=== PATIENT | female | born 1945 | race Caucasian/White ===

== ENCOUNTER → 2017-02-11 | Outpatient (CLI) | payer OTHER ==
[2017-02-11] VITALS (8 sets, daily range): BP systolic 132–193; BP diastolic 52–83
[~2017-02-11] MED LIST: ALEVE220 MG PO; AMITIZA 24 MCG24 MC1 PO; AMOXICILLIN875 MG PO; ASPIR 8181 MG PO; B12INJ IM; BENADRYL25 MG PO; CALCIUM +D & M1 EACH PO; CALCIUM 500 WI1 EAC3 PO; CARDIZEM CD240 MG PO; CEPHALEXIN 500500 M3 PO; CLONAZEPAM 0.50.5 M1 PO; DEPO-ESTRAD5 MG/1 ML INJECTION; DULCOLAX5 MG; DULCOLAX5 MG PO; ESTROGEN; FLEXERIL PO; HYDROCODON-ACE1 EAC5; HYDROCODONE-AP1 EAC2 PO; HYDROCODONE-AP1 EAC6 PO; IBUPROFEN 800800 M1 PO; IRON325 PO; KEFLEX500 M1 PO; KEFLEX500 MG; KEFLEX500 MG PO; KLOR-CON 10 ER10 MEQ PO; KLOR-CON 1010 MEQ; KLOR-CON 1010 MEQ PO; LASIX 20 MG TAB20 MG PO; LEVOTHYROXIN0.075 MG PO; LIMBITROL DS T1 EACH PO; LOPRESSOR50 PO; MACROBID 100 M100 M1 PO; MEDROLDOSEPACK PO; MIRALAX17 GM PO; MOBIC15 MG; MOBIC15 MG PO; NAPROSYN375 MG PO; NEXIUM40 MG PO; NIFEDICAL XL60 MG; NORCO 10-325 T1 EACH PO; NORCO 5-325 TA1 EACH PO; OMEPRAZOLE 20 M20 M1 PO; PEPCID20 MG PO; PREDNISONE 10 M10 MG PO; PRILOSEC 20 MG20 MG PO; PRILOSEC20 MG PO; PROTONIX40 M1 PO; ROBAXIN 750 MG750 M1 PO; SINGULAIR 10 MG10 M1 PO; SYNTHROID75 MCG PO; TOPROL XL100 MG; TOPROL XL50 MG PO; TRICOR145 MG PO; VITAMIN B-12500 MCG PO; ZANAFLEX4 M1; ZANAFLEX4 M1 PO; ZOFRAN ODT4 MG PO; estrogen
--- NOTE | 2017-03-06 09:11 | CARD ---
[address] [address] CARDIAC CATH REPORT Name: HELGATAMIE L Room: [facility]#: [id number] Admission: 02/11/17 Attend Phys: Sai Velazquez MD Discharge: Date of : 49 Report #: [id number] THIS REPORT FOR: //name// CC: Julian Velazquez DATE OF SERVICE: 02/11/2017 PROCEDURE: Implantable loop recorder replacement. INDICATION: Recurrent syncope. DESCRIPTION OF PROCEDURE: After informed consent was obtained, the patient was brought to the cardiac holding area. The area of the chest and parasternal area was prepped and draped in sterile fashion. Local anesthesia was achieved with 1% lidocaine. A focal area left of the sternum and the 4th intercostal space was anesthetized. An initial incision was made of approximately 1 cm in length. Using dilating tool, a path was made for the implantable loop recorder. A Biotronik BioMonitor loop recorder was placed percutaneously without difficulty. The skin incision was then closed using Steri-Strips after preparing the skin with Mastisol. The patient tolerated the procedure well without complication. Post-procedure interrogation of the device showed adequate sensing. IMPRESSION: 1. Recurrent syncope. 2. Placement of an implantable loop recorder without complication. <ELECTRONICALLY SIGNED> By: Sai Velazquez MD, [facility] 03/06/17 0911 1826 [id number] Hospitaldebra Velazquez MD, HEBERT /nt
== END | disposition home or self-care (01) ==
LOC: M.CL 08:29
DX: R55 Syncope and collapse (principal)

== ENCOUNTER 2017-04-20 02:35 | Emergency (ER) | payer OTHER ==
[~2017-04-20] VITALS: Ht 162.6 cm; Wt 87.5 kg
[~2017-04-20 02:35] MED LIST changes: -DULCOLAX5 MG; -KEFLEX500 M1 PO; -MOBIC15 MG; -TOPROL XL100 MG
[2017-04-20] MEDS ORDERED: TOPROL XL100 MG (02:50)
[2017-04-20] MEDS ORDERED: MOBIC15 MG (02:53)
[2017-04-20 04:05] VITALS: BP 141/64
[2017-04-20] MEDS ORDERED: KEFLEX500 M1 PO (14:22)
[2017-04-29] MEDS ORDERED: DULCOLAX5 MG (15:03)
== END 2017-04-20 04:05 | disposition home or self-care (01) ==
LOC: M.ERS 02:35
DX: R25.2 Cramp and spasm (principal); I10 Essential (primary) hypertension; K21.9 Gastro-esophageal reflux disease without esophagitis; Z90.710 Acquired absence of both cervix and uterus; E03.9 Hypothyroidism, unspecified; Z90.49 Acquired absence of other specified parts of digestive tract; Z88.1 Allergy status to other antibiotic agents; Z88.5 Allergy status to narcotic agent; Z88.2 Allergy status to sulfonamides; Z88.7 Allergy status to serum and vaccine; Z88.8 Allergy status to other drugs, medicaments and biological substances

== ENCOUNTER 2017-04-20 11:48 | Emergency (ER) | payer OTHER ==
[~2017-04-20] VITALS: Ht 162.6 cm; Wt 87.5 kg
[~2017-04-20 11:48] MED LIST changes: +MOBIC15 MG; +TOPROL XL100 MG
[2017-04-20 12:10] LABS: HEMATOCRIT 36.1 % (37.0-47.0); HEMOGLOBIN 11.7 gm/dL (12.0-15.0); MCHC 32.4 g/dL (28.0-37.0); MCV 83.3 fL (80.0-100.0); MPV 7.6 fl. (7.2-11.1); RBC 4.33 mil/uL (4.20-5.00); WBC 12.3 thou/uL (4.0-11.0)
[2017-04-20 12:13] LABS: POC CA IONIZED 4.7 mg/dL (4.5-5.3); POC CREATININE 1.5 mg/dL (0.6-1.3); POC HEMOGLOBIN 11.9 g/dL (12.0-17.0); POC POTASSIUM 4.1 mmol/L (3.5-4.9)
[2017-04-20 12:18] LABS: CALCIUM 9.2 mg/dL (8.5-10.1); CREATININE 1.6 mg/dL (0.6-1.3); POTASSIUM 4.1 mmol/L (3.5-5.1)
[2017-04-20 12:20] LABS: APTT 28.2 Seconds (25.0-31.3); INR 1.1; PROTIME 10.7 Seconds (9.20-11.50)
[2017-04-20 12:23] LABS: TOTAL BILIRUBIN 0.4 mg/dL (<0.1-1.0); TOTAL PROTEIN 7.3 g/dL (6.4-8.2)
[2017-04-20 12:32] LABS: URINE BILIRUBIN NEGATIVE (Negative); URINE BLOOD NEGATIVE (Negative); URINE CLARITY CLEAR; URINE COLOR YELLOW; URINE GLUCOSE-RANDOM NEGATIVE (Negative); URINE KETONES NEGATIVE (Negative); URINE LEUKOCYTES 1+ (Negative); URINE NITRITE NEGATIVE (Negative); URINE PROTEIN TRACE (Negative); URINE UROBILINOGEN 0.2 E.U./dl (0.2-1.0)
[2017-04-20 12:43] LABS: SQUAMOUS >10 Many /LPF (0-3); URINE WBC >25 Many /HPF (0-5)
[2017-04-20 12:45] LABS: BACTERIA None Seen /HPF (None Seen); CASTS None Seen /LPF (None Seen); CRYSTALS None Seen /LPF (None Seen); HYALINE CASTS >10 Many /LPF (None Seen); MUCUS >6 Heavy strn/LPF (None Seen); URINE RBC None Seen /HPF (0-2)
[2017-04-20] MEDS ORDERED: KEFLEX500 M1 PO (14:22)
[2017-04-20 14:24] VITALS: BP 141/46
--- NOTE | 2017-04-20 16:38 | EKG ---
[place] [address] ELECTROCARDIOGRAM REPORT Name: TAMIE PARTIDA Room: [facility]#: [id number] Admission: 04/20/17 Attend Phys: Discharge: 04/20/17 Date of : 49 Report #: [id number] THIS REPORT FOR: //name// [facility] ED Test Date: 2017-04-20 Test Time: 13:44:39 Pat Name: TAMIE PARTIDA Department: Room: Gender: F Career Placement Specialist: STUDENT : 1945 Requested By: Kareem Greenfield Order Number: [id number] MD: Sai Velazquez Measurements Intervals [place] Rate: 74 P: 40 NH: 144 QRS: 15 QRSD: 97 T: 229 QT: 355 QTc: 394 Interpretive Statements Sinus rhythm Probable left atrial enlargement Abnormal R-wave progression, early transition Left ventricular hypertrophy Nonspecific T abnormalities, diffuse leads Compared to ECG 12/09/2016 14:30:08 T-wave abnormality now present Electronically Signed On 04-20-2017 16:38:13 CEMENT FINISHER by Sai Velazquez [email or web address] <ELECTRONICALLY SIGNED> By: Sai Velazquez MD, [facility] 04/20/17 1638 1344 1344 Sai Velazquez MD, [facility] /EPI
[2017-04-29] MEDS ORDERED: DULCOLAX5 MG (15:03)
== END 2017-04-20 14:45 | disposition home or self-care (01) ==
LOC: M.ERS 11:48
PROVIDERS: Emergency Medicine
DX: N39.0 Urinary tract infection, site not specified (principal); R53.1 Weakness; I10 Essential (primary) hypertension; K21.9 Gastro-esophageal reflux disease without esophagitis; E03.9 Hypothyroidism, unspecified; Z90.710 Acquired absence of both cervix and uterus; Z90.49 Acquired absence of other specified parts of digestive tract; Z86.73 Personal history of transient ischemic attack (TIA), and cerebral infarction without residual deficits; Z88.1 Allergy status to other antibiotic agents; Z88.5 Allergy status to narcotic agent; Z88.2 Allergy status to sulfonamides; Z88.7 Allergy status to serum and vaccine

== ENCOUNTER → 2017-04-30 | Outpatient (CLI) | payer OTHER ==
[2017-04-30] VITALS (22 sets, daily range): BP systolic 91–141; BP diastolic 20–87
[~2017-04-30] MED LIST changes: +DULCOLAX5 MG; +KEFLEX500 M1 PO
--- NOTE | 2017-05-10 09:04 | CARD ---
[address] [address] CARDIAC CATH REPORT Name: HELGATAMIE L Room: [facility]#: [id number] Admission: 04/30/17 Attend Phys: Sai Velazquez MD Discharge: Date of : 49 Report #: [id number] THIS REPORT FOR: //name// CC: Sai Ha INDICATION: Syncope. PROCEDURE: Tilt table test. DESCRIPTION OF PROCEDURE: After informed consent was obtained, the patient was brought to the cardiac holding area. The patient was placed on the tilt table. Baseline blood pressure, heart rate and oxygen saturations were checked. The patient was then tilted to the 70-degree head upright position. Blood pressure, heart rate and O2 saturations were measured every 2 hours for 20 minutes. At the end of 20 minutes, the patient was given 0.4 mg of sublingual nitroglycerin. Vital signs continued to be monitored every 2 minutes, including blood pressure, heart rate and O2 saturations. The patient had no significant fluctuations in vital signs during either phase of the tilt table test. At the end of 40 minutes, the tilt table was returned to the supine position. The patient recovered in usual fashion and was discharged in stable condition. FINDINGS: Baseline blood pressure was 132/60 with a resting pulse rate of 67 beats per minute. At completion of the initial phase of the tilt table, the patient's blood pressure was 132/44 mmHg with a pulse rate of 75 beats per minute. At this point in time, the patient was given 0.4 mg of sublingual nitroglycerin. The patient's blood pressure had a fatmata of 91/20 mmHg with a pulse rate of 94 beats per minute. The patient remained symptomatic. The patient's blood pressure gradually improved back to normal levels. There were no significant fluctuations in heart rate. At the completion of the test, the patient's blood pressure was 106/57 mmHg with a pulse rate of 80 beats per minute. IMPRESSION: 1. Syncope. 2. Negative tilt table test with no indication to suggest neurocardiogenic syncope. <ELECTRONICALLY SIGNED> By: Sai Velazquez MD, FACC 05/10/17 0904 1800 0017Micdeni Velazquez MD, FACC /nt
== END | disposition home or self-care (01) ==
LOC: M.CL 08:33
DX: R55 Syncope and collapse (principal); F41.8 Other specified anxiety disorders; Z88.2 Allergy status to sulfonamides; Z88.8 Allergy status to other drugs, medicaments and biological substances; Z79.899 Other long term (current) drug therapy; Z79.891 Long term (current) use of opiate analgesic; Z87.440 Personal history of urinary (tract) infections

== ENCOUNTER → 2017-05-28 | Outpatient (CLI) | payer OTHER | LOC: M.MRI 13:05 | DX: G31.9 Degenerative disease of nervous system, unspecified (principal); I10 Essential (primary) hypertension; E11.9 Type 2 diabetes mellitus without complications; E78.5 Hyperlipidemia, unspecified; E03.9 Hypothyroidism, unspecified; Z79.4 Long term (current) use of insulin ==

== ENCOUNTER → 2017-06-11 | Outpatient (CLI) | payer OTHER | LOC: M.MRI 11:00 | DX: S83.252A Bucket-handle tear of lateral meniscus, current injury, left knee, initial encounter (principal); M17.12 Unilateral primary osteoarthritis, left knee; X58.XXXA Exposure to other specified factors, initial encounter; Y93.89 Activity, other specified; Y92.89 Other specified places as the place of occurrence of the external cause; Y99.8 Other external cause status ==

== ENCOUNTER 2017-07-22 09:20 | Emergency (ER) | payer OTHER ==
[~2017-07-22] VITALS: Ht 162.6 cm; Wt 88.5 kg
[2017-07-22 10:02] LABS: ABSOLUTE BASOPHILS 0.1 thou/uL (0.0-0.2); ABSOLUTE EOSINOPHILS 0.2 thou/uL (0.0-0.7); ABSOLUTE MONOCYTES 0.4 thou/uL (0.0-1.2); ABSOLUTE NEUTROPHILS 7.5 thou/uL (1.6-8.1); BASOPHILS 1.1 %; EOSINOPHILS 1.8 %; HEMATOCRIT 38.5 % (37.0-47.0); HEMOGLOBIN 12.6 gm/dL (12.0-15.0); LYMPHOCYTES 19.6 %; MCH 27.2 pg (26.0-34.0); MCHC 32.7 g/dL (28.0-37.0); MCV 83.2 fL (80.0-100.0); MPV 8.9 fl. (7.2-11.1); NUCLEATED RBCS 0 /100WBC; PLATELET COUNT* 397 thou/uL (150-400); POLYS 73.5 %; RBC 4.63 mil/uL (4.20-5.00); RDW-CV 14.1 % (10.5-14.5); WBC 10.2 thou/uL (4.0-11.0)
[2017-07-22 10:07] LABS: CREATININE 1.2 mg/dL (0.6-1.3)
[2017-07-22 10:11] LABS: ALBUMIN 4.1 g/dL (3.4-5.0); TOTAL BILIRUBIN 0.3 mg/dL (<0.1-1.0); TOTAL PROTEIN 7.6 g/dL (6.4-8.2)
[2017-07-22 11:06] VITALS: BP 131/55
== END 2017-07-22 11:08 | disposition home or self-care (01) ==
LOC: M.ERS 09:20
PROVIDERS: Family Medicine
DX: G44.229 Chronic tension-type headache, not intractable (principal); M79.1 Myalgia; K21.9 Gastro-esophageal reflux disease without esophagitis; E03.9 Hypothyroidism, unspecified; Z88.1 Allergy status to other antibiotic agents; Z88.5 Allergy status to narcotic agent; Z88.8 Allergy status to other drugs, medicaments and biological substances; Z90.49 Acquired absence of other specified parts of digestive tract; Z90.710 Acquired absence of both cervix and uterus

== ENCOUNTER → 2017-09-17 | Outpatient (CLI) | payer OTHER | LOC: M.MRI 09-09 13:43 | DX: I67.82 Cerebral ischemia (principal); E04.9 Nontoxic goiter, unspecified; Z88.8 Allergy status to other drugs, medicaments and biological substances ==

== ENCOUNTER 2018-03-12 17:39 | Inpatient (IN) | payer MEDICARE, OTHER ==
[~2018-03-12] VITALS: Ht 160 cm; Wt 85.3 kg
[~2018-03-12 17:39] MED LIST changes: -DULCOLAX5 MG; +LEVOXYL75 MCG PO; -TOPROL XL100 MG; +TOPROL XL100 MG PO
[2018-03-12 17:46] VITALS: BP 147/65
[2018-03-12] MEDS ORDERED: BENADRYL25 MG PO (18:00)
[2018-03-12] MEDS ORDERED: VITAMIN B-12500 MCG PO (18:00)
[2018-03-12 18:24] LABS: ABSOLUTE EOSINOPHILS 0.1 thou/uL (0.0-0.7); ABSOLUTE MONOCYTES 0.5 thou/uL (0.0-1.2); ABSOLUTE NEUTROPHILS 2.9 thou/uL (1.6-8.1); BASOPHILS 0.8 %; EOSINOPHILS 2.5 %; HEMATOCRIT 37.1 % (37.0-47.0); HEMOGLOBIN 12.2 gm/dL (12.0-15.0); LYMPHOCYTES 35.8 %; MCH 27.6 pg (26.0-34.0); MCHC 32.8 g/dL (28.0-37.0); MCV 84.2 fL (80.0-100.0); MONOCYTES 9.6 %; MPV 8.2 fl. (7.2-11.1); NUCLEATED RBCS 0 /100WBC; PLATELET COUNT* 322 thou/uL (150-400); POLYS 51.3 %; RBC 4.41 mil/uL (4.20-5.00); RDW-CV 13.9 % (10.5-14.5); WBC 5.6 thou/uL (4.0-11.0)
[2018-03-12 18:31] LABS: CALCIUM 9.1 mg/dL (8.5-10.1); CREATININE 1.3 mg/dL (0.6-1.3); POTASSIUM 3.8 mmol/L (3.5-5.1)
[2018-03-12 18:33] LABS: INFLUENZA A ANTIGEN None Detected (None Detect); INFLUENZA B ANTIGEN None Detected (None Detect)
[2018-03-12 18:36] LABS: ALBUMIN 3.8 g/dL (3.4-5.0); TOTAL BILIRUBIN 0.3 mg/dL (<0.1-1.0); TOTAL PROTEIN 7.6 g/dL (6.4-8.2)
[2018-03-12 21:30] VITALS: BP 113/71
[2018-03-12 21:34] VITALS: BP 143/51
[2018-03-13] VITALS: BP 153/54
[2018-03-13 01:55] LABS: ABSOLUTE LYMPHOCYTES 1.1 thou/uL (0.8-5.3); ABSOLUTE MONOCYTES 0.2 thou/uL (0.0-1.2); ABSOLUTE NEUTROPHILS 5.6 thou/uL (1.6-8.1); BASOPHILS 0.3 %; EOSINOPHILS 0.1 %; HEMATOCRIT 33.5 % (37.0-47.0); HEMOGLOBIN 11.2 gm/dL (12.0-15.0); LYMPHOCYTES 15.6 %; MCH 28.2 pg (26.0-34.0); MCHC 33.4 g/dL (28.0-37.0); MCV 84.5 fL (80.0-100.0); MONOCYTES 2.7 %; MPV 8.3 fl. (7.2-11.1); NUCLEATED RBCS 0 /100WBC; PLATELET COUNT* 296 thou/uL (150-400); POLYS 81.3 %; RBC 3.96 mil/uL (4.20-5.00); RDW-CV 13.7 % (10.5-14.5); WBC 6.9 thou/uL (4.0-11.0)
[2018-03-13 01:58] LABS: CALCIUM 8.9 mg/dL (8.5-10.1); CREATININE 1.6 mg/dL (0.6-1.3); MAGNESIUM 1.8 mg/dL (1.8-2.4); POTASSIUM 3.9 mmol/L (3.5-5.1)
[2018-03-13 06:03] LABS: URINE BILIRUBIN NEGATIVE (Negative); URINE BLOOD NEGATIVE (Negative); URINE CLARITY CLEAR; URINE COLOR YELLOW; URINE GLUCOSE-RANDOM 2+ (Negative); URINE KETONES NEGATIVE (Negative); URINE LEUKOCYTES NEGATIVE (Negative); URINE NITRITE POSITIVE (Negative); URINE PROTEIN NEGATIVE (Negative); URINE UROBILINOGEN 0.2 E.U./dl (0.2-1.0)
[2018-03-13 08:00] VITALS: BP 155/50
[2018-03-13 09:16] LABS: SQUAMOUS 0-3 Few /LPF (0-3); URINE WBC 6-15 Few /HPF (0-5)
[2018-03-13 09:17] LABS: MUCUS 4-6 Moderate strn/LPF (None Seen); URINE RBC 0-2 Rare /HPF (0-2)
[2018-03-13 09:18] LABS: CRYSTALS None Seen /LPF (None Seen); HYALINE CASTS 0-3 Few /LPF (None Seen)
[2018-03-13 11:34] VITALS: BP 147/58
--- NOTE | 2018-03-13 12:14 | EKG ---
[place] [address] ELECTROCARDIOGRAM REPORT Name: TAMIE PARTIDA Room: [place] [address] ADM IN [facility].#: [id number] Admission: 03/12/18 Attend Phys: La Nena Arnett MD Discharge: Date of : 49 Report #: [id number] THIS REPORT FOR: //name// [facility] ED Test Date: 2018-03-12 Test Time: 17:51:01 Pat Name: TAMIE PARTIDA Department: Room: [facility] Gender: F Burglar Alarm Operator: KEYONA : 1945 Requested By: Homa Beasley Order Number: [id number] MD: Brandon Verma Measurements Intervals [place] Rate: 71 P: 3 AL: 146 QRS: 20 QRSD: 91 T: 41 QT: 364 QTc: 396 Interpretive Statements Sinus rhythm Left ventricular hypertrophy Compared to ECG 04/20/2017 13:44:39 T-wave abnormality no longer present Electronically Signed On 03-13-2018 12:14:00 BRAND REPRESENTATIVE by Brandon Verma [email or web address] <ELECTRONICALLY SIGNED> By: Brandon Verma MD, [facility] 03/13/18 1214 1751 175 Brandon Verma MD, [facility] /EPI
[2018-03-13 15:50] VITALS: BP 133/50
[2018-03-13 20:00] VITALS: BP 138/67
[2018-03-14] VITALS: BP 139/56
[2018-03-14 04:00] VITALS: BP 136/62
[2018-03-14 05:06] LABS: ABSOLUTE LYMPHOCYTES 1.6 thou/uL (0.8-5.3); ABSOLUTE MONOCYTES 0.2 thou/uL (0.0-1.2); ABSOLUTE NEUTROPHILS 6.9 thou/uL (1.6-8.1); BASOPHILS 0.3 %; HEMATOCRIT 33.7 % (37.0-47.0); HEMOGLOBIN 11.3 gm/dL (12.0-15.0); LYMPHOCYTES 18.2 %; MCHC 33.5 g/dL (28.0-37.0); MCV 83.4 fL (80.0-100.0); MONOCYTES 2.7 %; MPV 8.5 fl. (7.2-11.1); NUCLEATED RBCS 0 /100WBC; PLATELET COUNT* 347 thou/uL (150-400); POLYS 78.8 %; RBC 4.05 mil/uL (4.20-5.00); RDW-CV 13.8 % (10.5-14.5); WBC 8.8 thou/uL (4.0-11.0)
[2018-03-14 05:15] LABS: CALCIUM 9.6 mg/dL (8.5-10.1); CREATININE 1.1 mg/dL (0.6-1.3); MAGNESIUM 2.2 mg/dL (1.8-2.4)
[2018-03-14 08:00] VITALS: BP 135/50
[2018-03-14 12:34] VITALS: BP 143/67
[2018-03-14 20:10] VITALS: BP 140/55
[2018-03-15] VITALS: BP 134/56
[2018-03-15 03:57] VITALS: BP 130/70
[2018-03-15 08:00] VITALS: BP 122/62
[2018-03-15 11:52] VITALS: BP 129/57
[2018-03-15 16:04] VITALS: BP 142/52
[2018-03-15 19:45] VITALS: BP 140/43
[2018-03-16] VITALS: BP 137/56
[2018-03-16 08:00] VITALS: BP 140/62
[2018-03-16 12:00] VITALS: BP 149/63
[2018-03-16 12:59] VITALS: BP 149/63
[2018-03-16] MEDS ORDERED: CEFDINIR300 MG PO (13:10)
[2018-03-16] MEDS ORDERED: TAMIFLU75 MG PO (13:11)
== END 2018-03-16 15:30 | disposition home or self-care (01) | DRG 202 ==
LOC: M.ERS 17:39 → M.2W 19:59 → M.TBA-ER 19:59 → M.2W 20:33
PROVIDERS: Internal Medicine; Nurse Practitioner Family; ADMIT Family Medicine
DX: J20.9 Acute bronchitis, unspecified (principal); J15.6 Pneumonia due to other Gram-negative bacteria; I10 Essential (primary) hypertension; E03.9 Hypothyroidism, unspecified; K21.9 Gastro-esophageal reflux disease without esophagitis; F41.1 Generalized anxiety disorder; F32.9 Major depressive disorder, single episode, unspecified; I73.9 Peripheral vascular disease, unspecified; J84.10 Pulmonary fibrosis, unspecified; Z90.710 Acquired absence of both cervix and uterus; Z98.891 History of uterine scar from previous surgery; Z90.49 Acquired absence of other specified parts of digestive tract; Z79.899 Other long term (current) drug therapy; Z88.2 Allergy status to sulfonamides; Z88.8 Allergy status to other drugs, medicaments and biological substances; Z88.1 Allergy status to other antibiotic agents; Z91.041 Radiographic dye allergy status

== ENCOUNTER 2018-05-11 20:39 | Emergency (ER) | payer MEDICARE, OTHER ==
[~2018-05-11] VITALS: Ht 160 cm; Wt 81.2 kg
[~2018-05-11 20:39] MED LIST changes: +CEFDINIR300 MG PO; +TAMIFLU75 MG PO
[2018-05-11] MEDS ORDERED: NORCO 5-325 TA1 EACH PO (21:33)
[2018-05-11 22:13] VITALS: BP 182/53
== END 2018-05-11 22:14 | disposition home or self-care (01) ==
LOC: M.ERS 20:39
DX: M25.562 Pain in left knee (principal); I10 Essential (primary) hypertension; K21.9 Gastro-esophageal reflux disease without esophagitis; E03.9 Hypothyroidism, unspecified; Z90.49 Acquired absence of other specified parts of digestive tract; Z90.710 Acquired absence of both cervix and uterus; Z88.2 Allergy status to sulfonamides; Z88.6 Allergy status to analgesic agent; Z88.8 Allergy status to other drugs, medicaments and biological substances

== ENCOUNTER → 2019-08-04 | Outpatient (CLI) | payer MEDICARE, OTHER ==
--- NOTE | 2019-08-07 18:06 | CARDNUC ---
[place] [address] CARDIAC NUCLEAR IMAGING REPORT Name: HELGATAMIE L Room: [facility]#: [id number] Admission: 08/04/19 Attend Phys: Sai Velazqeuz, Discharge: Date of : 49 Date of Service: 08/07/19 1805 Report #: [id number] THIS REPORT FOR: cc: POPPY OLIVERA MD, CHADWICK MD Liston, Michael J. MD [facility] ~ APPROVED REPORT Study performed: 08/04/2019 16:29:50 Exam: Nuclear Stress Test Indication: Syncope Patient Location: Out-Patient Stress Tech: Janet Meneses Stress Nurse: Avril Bains RN Ht: 5 ft 4 in Wt: 183 lbs BSA: 1.88 m2 BMI: 31.40 Medical History Medical History: HTN, Diabetes, Hyperlipidemia, Stroke/TIA Medications: fenofibrate, lasix, metoprolol, klor-con, asa-81 Allergies: multiple see list Cardiac Risk Factors: Age, HTN, Hyperlipidemia Exercise History: Sedentary Meds Held (24 hrs): metoprolol Stress Test Details Stress Test: Pharmacologic stress testing performed using 0.4 mg of regadenoson per 5 mL given IV over 10 seconds. Reason for pharmacologic stress test: physical limitation. HR Resting HR: 69 bpm Max Heart Rate (APMHR): 148 bpm Max HR Achieved: 92 bpm Target HR (85% APMHR): 125 bpm % of APMHR: 62 Recovery HR: 86 bpm BP Resting BP: 141/65 mmHg Max BP: 137/[address] [address] CARDIAC NUCLEAR IMAGING REPORT Name: TAMIE PARTIDA Room: [facility]#: [id number] Admission: 08/04/19 Attend Phys: Sai Velazquez, Discharge: Date of : 49 Date of Service: 08/07/19 1805 Report #: [id number] ECG Resting ECG: Sinus Rhythm, LVH with repolarization changes Stress ECG: Sinus Rhythm, LVH with repolarization changes ST Change: None Arrhythmia: None Recovery ECG: Sinus Rhythm, LVH with repolarization changes Recovery ST Change: None Recovery Arrhythmia: None Clinical Reason for Termination: Completed protocol The patient had mild nausea with Lexiscan infusion felt to be medication effect in light of nuclear perfusion study findings. Nurse Comments ivp 60 mg caffiene given for nausea. pt unable to walk on treadmill due to using cane Stress ECG Conclusion The baseline twelve-lead EKG shows sinus rhythm. There is left ventricular hypertrophy with repolarization abnormality noted. EKGs obtained during and post Lexiscan infusion showed no significant ST segment changes when compared to baseline. There were no stress-induced arrhythmias. NM EXAM: Myocardial Perfusion REST/STRESS Resting Data Rest SPECT myocardial perfusion imaging was performed in supine position 30 minutes following the intravenous injection of 9.9 mCi of Tc-99m Sestamibi. Time of rest injection: 15:05 The images were gated to evaluate regional wall motion and calculate left ventricular ejection fraction. Administration Route: IV Administration Site: Left Arm Pharmacologic Stress Pharmacologic stress test was performed by injecting Regadenoson 0.4 mg IV push followed by the intravenous injection of 28.8 mCi of Tc-99m Sestamibi. Time of stress injection: 17:00 [place] [address] CARDIAC NUCLEAR IMAGING REPORT Name: TAMIE PARTIDA Room: [facility]#: [id number] Admission: 08/04/19 Attend Phys: Sai Velazquez, Discharge: Date of : 49 Date of Service: 08/07/19 1805 Report #: [id number] Administration Route: IV Administration Site: Left Arm Heart Rate at time of stress injection: 84 bpm. Gated Stress SPECT was performed 45 minutes after stress injection. The images were gated to evaluate regional wall motion and calculate left ventricular ejection fraction. Study Quality Study: Good Artifact: No artifact Study Data At rest, the left ventricular ejection fraction was 79%.. Post stress, the left ventricular ejection was 83%.. TID = 0.85. Perfusion Perfusion images obtained at rest and post Lexiscan stress showed uniform uptake of the radioisotope throughout the myocardium without defect. Wall Motion LV systolic function is normal. There were no wall motion abnormalities. Nuclear Conclusion ECG Findings: non-diagnostic Clinical Findings: negative for ischemia Nuclear Findings: negative for ischemia Exercise Capacity: not assessed Left Ventricular Function: normal Risk Study: low Perfusion study show no defect to suggest infarct or ischemia. Left ventricular systolic function appears normal on gated studies. This is a low risk study. <Conclusion> The baseline twelve-lead EKG shows sinus rhythm. There is left ventricular hypertrophy with repolarization abnormality noted. EKGs obtained during and post Lexiscan infusion showed no significant [place] [address] CARDIAC NUCLEAR IMAGING REPORT Name: TAMIE PARTIDA Room: [facility]#: [id number] Admission: 08/04/19 Attend Phys: Sai Velazquez, Discharge: Date of : 49 Date of Service: 08/07/191804 Report #: [id number] segment changes when compared to baseline. There were no stress-induced arrhythmias. <ELECTRONICALLY SIGNED> By: Sai Velazquez MD, FACC 08/07/191804 04 04 Sai Velazquez MD, FACC /INF
== END ==
LOC: M.NUC 07-28 08:35 → M.CRD 14:00 → M.NUC 14:42
PROVIDERS: ATTEND Internal Medicine Cardiovascular Disease
DX: M79.602 Pain in left arm (principal)

== ENCOUNTER 2019-10-05 20:57 | Emergency (ER) | payer MEDICARE, OTHER ==
[~2019-10-05] VITALS: Ht 162.6 cm; Wt 77.6 kg
[2019-10-05 22:36] LABS: URINE BILIRUBIN NEGATIVE (Negative); URINE BLOOD NEGATIVE (Negative); URINE CLARITY CLEAR; URINE COLOR YELLOW; URINE GLUCOSE-RANDOM NEGATIVE (Negative); URINE KETONES NEGATIVE (Negative); URINE LEUKOCYTES-REFLEX 2+ (Negative); URINE NITRITE-REFLEX NEGATIVE (Negative); URINE PROTEIN NEGATIVE (Negative); URINE UROBILINOGEN 0.2 E.U./dl (0.2-1.0)
[2019-10-05 22:42] LABS: MUCUS None Seen strn/LPF (None Seen); SQUAMOUS 4-10 Moderate /LPF (0-3)
[2019-10-05 22:43] LABS: BACTERIA-REFLEX 1-9 Few /HPF (None Seen); CASTS None Seen /LPF (None Seen); CRYSTALS None Seen /LPF (None Seen); URINE RBC None Seen /HPF (0-2)
[2019-10-05 23:09] LABS: ABSOLUTE EOSINOPHILS 0.1 thou/uL (0.0-0.7); ABSOLUTE LYMPHOCYTES 2.1 thou/uL (0.8-5.3); ABSOLUTE MONOCYTES 0.5 thou/uL (0.0-1.2); ABSOLUTE NEUTROPHILS 4.7 thou/uL (1.6-8.1); BASOPHILS 0.4 %; EOSINOPHILS 1.5 %; HEMATOCRIT 32.6 % (37.0-47.0); HEMOGLOBIN 11.2 gm/dL (12.0-15.0); LYMPHOCYTES 28.1 %; MCH 28.7 pg (26.0-34.0); MCHC 34.4 g/dL (28.0-37.0); MCV 83.6 fL (80.0-100.0); MONOCYTES 6.6 %; NUCLEATED RBCS 0 /100WBC; PLATELET COUNT* 294 thou/uL (150-400); POLYS 63.4 %; RDW-CV 13.8 % (10.5-14.5); WBC 7.5 thou/uL (4.0-11.0)
[2019-10-05 23:16] LABS: CALCIUM 8.8 mg/dL (8.5-10.1); CREATININE 1.4 mg/dL (0.6-1.3); POTASSIUM 3.8 mmol/L (3.5-5.1)
[2019-10-05 23:20] LABS: ALBUMIN 3.8 g/dL (3.4-5.0); MAGNESIUM 2.2 mg/dL (1.8-2.4); TOTAL BILIRUBIN 0.2 mg/dL (<0.1-1.0); TOTAL PROTEIN 7.2 g/dL (6.4-8.2)
[2019-10-06] MEDS ORDERED: KEFLEX500 M1 PO (01:25)
[2019-10-06] MEDS ORDERED: ACYCLOVIR 400400 MG PO (01:25)
[2019-10-06 01:30] VITALS: BP 120/60
--- NOTE | 2019-10-06 14:03 | EKG ---
[place] [address] ELECTROCARDIOGRAM REPORT Name: TAMIE PARTIDA Room: [facility]#: [id number] Admission: 10/05/19 Attend Phys: Discharge: 10/06/19 Date of : 49 Date of Service: 10/05/192101 Report #: [id number] THIS REPORT FOR: //name// [facility] ED Test Date: 2019-10-05 Test Time: 21:02:34 Pat Name: TAMIE PARTIDA Department: Room: Gender: Millstone Cleaner: [place] : 1945 Requested By: Vanita Duran Order Number: [id number] MD: Julian Del Angel Measurements Intervals [place] Rate: 71 P: 24 [place]: 151 QRS: 29 QRSD: 87 T: 71 QT: 404 QTc: 439 Interpretive Statements Sinus rhythm Probable left atrial enlargement Probable LVH with secondary repol abnrm Compared to ECG 03/12/2018 17:51:01 No significant changes Electronically Signed On 10-06-2019 14:03:29 CDT by Julian Del Angel [email or web address] <ELECTRONICALLY SIGNED> By: Julian Del Angel MD, [facility] 10/06/19 1403 01 01 Julian Del Angel MD, [facility] /EPI
== END 2019-10-06 01:30 | disposition home or self-care (01) ==
LOC: M.ERS 20:57
PROVIDERS: Emergency Medicine
DX: R55 Syncope and collapse (principal); N39.0 Urinary tract infection, site not specified; R21 Rash and other nonspecific skin eruption; K13.70 Unspecified lesions of oral mucosa; I10 Essential (primary) hypertension; K21.9 Gastro-esophageal reflux disease without esophagitis; E03.9 Hypothyroidism, unspecified; Z90.49 Acquired absence of other specified parts of digestive tract; Z90.710 Acquired absence of both cervix and uterus; Z98.890 Other specified postprocedural states; Z88.8 Allergy status to other drugs, medicaments and biological substances; Z88.2 Allergy status to sulfonamides; Z88.1 Allergy status to other antibiotic agents

== ENCOUNTER 2019-11-22 13:03 | Emergency (ER) | payer OTHER, MEDICARE ==
[~2019-11-22] VITALS: Ht 162.6 cm; Wt 77.1 kg
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
[~2019-11-22 13:03] MED LIST changes: +ACYCLOVIR 400400 MG PO
[2019-11-22 13:37] LABS: URINE BILIRUBIN NEGATIVE (Negative); URINE BLOOD NEGATIVE (Negative); URINE CLARITY CLEAR; URINE COLOR YELLOW; URINE GLUCOSE-RANDOM NEGATIVE (Negative); URINE KETONES NEGATIVE (Negative); URINE LEUKOCYTES-REFLEX NEGATIVE (Negative); URINE NITRITE-REFLEX NEGATIVE (Negative); URINE PROTEIN NEGATIVE (Negative); URINE UROBILINOGEN 0.2 E.U./dl (0.2-1.0)
[2019-11-22] MEDS ORDERED: IBUPROFEN 600600 M1 PO (14:27)
[2019-11-22] MEDS ORDERED: NORCO 5-325 TA1 EAC2 PO (14:36)
[2019-11-22 15:00] VITALS: BP 158/59
== END 2019-11-22 15:00 | disposition home or self-care (01) ==
LOC: M.ERS 13:03
PROVIDERS: Physician Assistant
DX: S16.1XXA Strain of muscle, fascia and tendon at neck level, initial encounter (principal); S09.8XXA Other specified injuries of head, initial encounter; M54.6 Pain in thoracic spine; I10 Essential (primary) hypertension; E03.9 Hypothyroidism, unspecified; K21.9 Gastro-esophageal reflux disease without esophagitis; Z88.2 Allergy status to sulfonamides; Z88.1 Allergy status to other antibiotic agents; Z88.6 Allergy status to analgesic agent; Z88.8 Allergy status to other drugs, medicaments and biological substances; Z90.710 Acquired absence of both cervix and uterus; Z98.890 Other specified postprocedural states; Z90.49 Acquired absence of other specified parts of digestive tract; V49.49XA Driver injured in collision with other motor vehicles in traffic accident, initial encounter; Y93.89 Activity, other specified; Y92.89 Other specified places as the place of occurrence of the external cause; Y99.8 Other external cause status

== ENCOUNTER → 2020-07-17 | Outpatient (CLI) | payer OTHER ==
[~2020-07-17] MED LIST changes: +IBUPROFEN 600600 M1 PO; +NORCO 5-325 TA1 EAC2 PO
--- NOTE | 2020-07-17 16:34 | 2DMMODE ---
[place] [address] 2 D/M-MODE ECHOCARDIOGRAM Name: TAMIE PARTIDA Room: [facility]#: [id number] Admission: 07/17/20 Attend Phys: Sai Velazquez, Discharge: Date of : 49 Date of Service: 07/17/20 1634 Report #: [id number] THIS REPORT FOR: cc: POPPY OLIVERA MD, CHADWICK MD Blick, David R. MD [facility] ~ APPROVED REPORT Study performed: 07/17/2020 11:04:21 EXAM: Comprehensive 2D, Doppler, and color-flow Echocardiogram Patient Location: Out-Patient BSA: 1.87 HR: 72 bpm BP: 149/68 mmHg Other Information Study Quality: Good Indications Murmur 2D Dimensions IVSd: 7.79 (7-11mm) LVOT Diam: 20.69 (18-24mm) LVDd: 44.27 mm PWd: 9.44 (7-11mm) Ascending Ao: 28.05 (22-36mm) LVDs: 24.89 (25-40mm) Aortic Root: 29.37 mm Volumes Left Atrial Volume (Systole) LA ESV Index: 18.40 mL/m2 Aortic Valve AoV Peak Evan.: 1.95 m/s AO Peak Gr.: 15.20 mmHg LVOT Max P.15 mmHg AO Mean Gr.: 8.29 mmHg LVOT Mean P.52 mmHg LVOT Max V: 1.34 m/s AO V2 VTI: 41.63 cm LVOT Mean V: 0.86 m/s JEFFERSON (VTI): 2.58 cm2 LVOT V1 VTI: 32.00 cm Mitral Valve E/A Ratio: 0.78 [place] [address] 2 D/M-MODE ECHOCARDIOGRAM Name: TAMIE PARTIDA Room: [facility]#: [id number] Admission: 07/17/20 Attend Phys: Sai Velazquez, Discharge: Date of : 49 Date of Service: 07/17/20 1634 Report #: [id number] MV Decel. Time: 296.29 ms MV E Max Evan.: 0.81 m/s MV PHT: 85.92 ms MVA (PHT): 2.56 cm2 TDI E/Lateral E': 8.10 E/Medial E': 11.57 Medial E' Evan.: 0.07 m/s Lateral E' Evan.: 0.10 m/s Pulmonary Valve PV Peak Evan.: 0.87 m/s PV Peak Gr.: 3.05 mmHg Tricuspid Valve RAP Estimate: 5.00 mmHg TR Peak Gr.: 22.72 mmHg RVSP: 27.72 mmHg PA Pressure: 27.72 mmHg Left Ventricle The left ventricle is normal size. There is normal LV segmental wall motion. There is normal left ventricular wall thickness. Left ventricular systolic function is normal. The left ventricular ejection fraction is within the normal range. LVEF is 55-60%. Grade I - abnormal relaxation pattern. Right Ventricle The right ventricle is normal size. The right ventricular systolic function is normal. Atria The left atrium size is normal. The right atrium size is normal. Aortic Valve Aortic valve is calcified. trace aortic regurgitation is present. Mild aortic stenosis. Mitral Valve Mild mitral annular calcification. The mitral valve is normal in structure. Mild mitral regurgitation. No evidence of mitral valve stenosis. Tricuspid Valve The tricuspid valve is normal in structure. [place] [address] 2 D/M-MODE ECHOCARDIOGRAM Name: TAMIE PARTIDA Room: [facility]#: [id number] Admission: 07/17/20 Attend Phys: Sai Velazquez, Discharge: Date of : 49 Date of Service: 07/17/20 1634 Report #: [id number] Pulmonic Valve The pulmonary valve is normal in structure. Trace pulmonic regurgitation. Great Vessels The aortic root is normal in size. IVC is normal in size and collapses >50% with inspiration. Pericardium There is no pericardial effusion. <Conclusion> LVEF is 55-60%. Mild aortic stenosis. Mild mitral regurgitation. <ELECTRONICALLY SIGNED> By: Brandon Verma MD, [facility] 07/17/20 1634 1634 1634 Brandon Verma MD, [facility] /INF
== END ==
LOC: M.CRD 11:00
PROVIDERS: ATTEND Internal Medicine Cardiovascular Disease
DX: I08.1 Rheumatic disorders of both mitral and tricuspid valves (principal); R01.1 Cardiac murmur, unspecified